=== PATIENT | male | born 1955 | race Caucasian/White ===

== ENCOUNTER 2018-08-14 09:20 | Observation (INO) | payer MEDICARE, OTHER ==
[~2018-08-14] VITALS: Ht 177.8 cm; Wt 76.2 kg
[~2018-08-14 09:20] MED LIST: AUGM4005L GT; CLON.1 PO; LEVO100T12 PO; OMEP20TA25 PO
[2018-08-14] MEDS ORDERED: ONDANSETRON HCL 4 MG/2 ML VIAL ONE (09:45)
[2018-08-14] MEDS ORDERED: SODIUM CHLORIDE 0.9% 500ML 500 ML IV ONE (09:46)
[2018-08-14 11:34] LABS: MAN.DIFF COMMENT-IMPRESSION MANUAL DIFFERENTIAL; MONOCYTES % (MANUAL) 5 % (2-9)
[2018-08-14 11:35] LABS: PLATELET MORPHOLOGY COMMENT SLIGHTLY DECREASED
[2018-08-14 11:54] LABS: BASOPHILS % (AUTO) 0.8 % (0.0-5.0); EOSINOPHILS % (AUTO) 0.6 % (0.0-8.0); HEMATOCRIT 33.9 % (42-54); LYMPHOCYTES % (AUTO) 12.5 % (21.0-51.0); MEAN CORPUSCULAR HEMOGLOBIN 34.3 pg (27.0-33.0); MEAN CORPUSCULAR HGB CONC 34.6 g/dL (32.0-36.0); MEAN CORPUSCULAR VOLUME 98.9 fL (79-99); MONOCYTES % (AUTO) 11.4 % (3.0-13.0); NEUTROPHILS % (AUTO) 74.7 % (40.0-77.0); NUCLEATED RED BLOOD CELLS 0.1 % (0.0-0.19); PLATELET COUNT (AUTO) 232 K/uL (130-400); RED BLOOD CELL COUNT(AUTO) 3.43 MIL/uL (4.50-6.20); RED CELL DISTRIBUTION WIDTH 15.4 % (11.0-15.5); WHITE BLOOD COUNT (AUTO) 6.5 K/uL (4.8-10.8)
[2018-08-14 12:06] LABS: POTASSIUM 4.8 mmol/L (3.5-5.1)
[2018-08-14 12:10] LABS: ALBUMIN 3.9 g/dL (3.5-5.0); BILIRUBIN,TOTAL 0.9 mg/dL (0.2-1.0); TOTAL PROTEIN, SERUM 7.4 g/dL (6.0-8.3)
[2018-08-14 12:21] LABS: B-TYPE NATRIURETIC PEPTIDE 125 pg/mL (0-100)
[2018-08-14 12:27] LABS: HEMATOCRIT 34.7 % (42-54)
[2018-08-14] MEDS ORDERED: LEVO100T12 PO (13:08)
[2018-08-14] MEDS ORDERED: PRAV10TA39 PO (13:09)
[2018-08-14] MEDS ORDERED: LISI10TA7 PO (13:09)
[2018-08-14] MEDS ORDERED: ACETAMINOPHEN 325 MG TAB PO PRN (13:45)
[2018-08-14] MEDS ORDERED: LIDOCAINE HCL-MPF 1% 2ML VIAL IVP PRN (13:45)
[2018-08-14] MEDS ORDERED: POTASSIUM CHLORIDE 20 MEQ ERTAB PO PRN (13:45)
[2018-08-14] MEDS ORDERED: LACTULOSE 20 GM/30 ML UDCUP PO PRN (13:45)
[2018-08-14] MEDS ORDERED: POTASSIUM CHLORIDE 20MEQ/100ML 100 ML IV PRN (13:45)
[2018-08-14] MEDS ORDERED: MAG HYDROX/AL HYDROX/SIMETH ES 30 ML SUSP UDCUP PO PRN (13:45)
[2018-08-14] MEDS ORDERED: ONDANSETRON HCL 4 MG/2 ML VIAL IV PRN (13:45)
[2018-08-14] MEDS ORDERED: POTASSIUM CHLORIDE 10% ELIXIR 20 MEQ/15 ML UDCUP PO PRN (13:45)
[2018-08-14] MEDS ORDERED: SODIUM CHLORIDE 0.9% 1000ML 1,000 ML IV ONE (13:47)
[2018-08-14 14:57] LABS: APPEARANCE,URINE Clear (CLEAR); BILIRUBIN,URINE Negative (NEGATIVE); COLOR,URINE Yellow (YELLOW); GLUCOSE, URINE (UA) Negative (NEGATIVE); KETONES,URINE 40 mg/dL (NEGATIVE); LEUKOCYTE ESTERASE ,URINE Negative (NEGATIVE); NITRATE,URINE Negative (NEGATIVE); OCCULT BLOOD,URINE Negative (NEGATIVE); PH,URINE 6.5 (5.0-8.0); PROTEIN,URINE Negative (NEGATIVE)
[2018-08-14 15:42] LABS: AMPHET/METH SCREEN,URINE NEGATIVE (NEGATIVE); BARBITURATE SCREEN, URINE NEGATIVE (NEGATIVE); BENZODIAZEPINES SCREEN,URINE NEGATIVE (NEGATIVE); CANNABINOID SCREEN,URINE NEGATIVE (NEGATIVE); COCAINE SCREEN,URINE NEGATIVE (NEGATIVE); OPIATE SCREEN,URINE NEGATIVE (NEGATIVE); PHENCYCLIDINE SCREEN,URINE NEGATIVE (NEGATIVE)
[2018-08-14 18:27] VITALS: BP 165/86
[2018-08-14 19:05] VITALS: BP 129/85
[2018-08-14] MEDS ORDERED: CEFTRIAXONE SODIUM 1 GM IVP SCH (21:00)
[2018-08-14 23:08] VITALS: BP 168/95
[2018-08-14] MEDS: SODIUM CHLORIDE 0.9% 1000ML 1,000 ML IV SCH (23:47)
[2018-08-14] MEDS: ACETAMINOPHEN 325 MG TAB PO PRN (23:49)
[2018-08-15 03:16] VITALS: BP 171/91
[2018-08-15 04:31] LABS: HEMATOCRIT 29.5 % (42-54); MEAN CORPUSCULAR HEMOGLOBIN 35.1 pg (27.0-33.0); MEAN CORPUSCULAR HGB CONC 35.3 g/dL (32.0-36.0); MEAN CORPUSCULAR VOLUME 99.3 fL (79-99); NUCLEATED RED BLOOD CELLS 0.1 % (0.0-0.19); PLATELET COUNT (AUTO) 215 K/uL (130-400); RED BLOOD CELL COUNT(AUTO) 2.97 MIL/uL (4.50-6.20); RED CELL DISTRIBUTION WIDTH 14.7 % (11.0-15.5); WHITE BLOOD COUNT (AUTO) 6.9 K/uL (4.8-10.8)
[2018-08-15 04:46] LABS: CREATININE 0.7 mg/dL (0.5-1.5); POTASSIUM 5.5 mmol/L (3.5-5.1)
[2018-08-15] MEDS ORDERED: LEVOTHYROXINE 100 MCG TABLET ONE (06:23)
[2018-08-15] MEDS: LEVOTHYROXINE 100 MCG TABLET PO SCH (06:35)
[2018-08-15] MEDS: SODIUM CHLORIDE 0.9% 1000ML 1,000 ML IV SCH (06:35)
[2018-08-15 07:15] VITALS: BP 126/55
[2018-08-15] MEDS ORDERED: AMLO5TAB7 PO (08:14)
[2018-08-15] MEDS ORDERED: CEPH500C2 PO (08:14)
[2018-08-15] MEDS: AMLODIPINE BESYLATE 5 MG TAB PO SCH (09:59)
[2018-08-15] MEDS: CEPHALEXIN 500 MG CAPSULE PO SCH ×3 (09:59→22:10)
[2018-08-15] MEDS: PANTOPRAZOLE SODIUM 40 MG TABLET.DR PO SCH (09:59)
[2018-08-15 11:53] VITALS: BP 145/86
[2018-08-15 16:00] VITALS: BP 136/78
[2018-08-15 19:00] VITALS: BP 129/95
[2018-08-15] MEDS: ACETAMINOPHEN 325 MG TAB PO PRN (22:12)
[2018-08-16] VITALS: BP 140/80
[2018-08-16 04:00] VITALS: BP 136/94
[2018-08-16] MEDS: LEVOTHYROXINE 100 MCG TABLET PO SCH (06:45)
[2018-08-16 08:00] VITALS: BP 142/88
[2018-08-16] MEDS: PANTOPRAZOLE SODIUM 40 MG TABLET.DR PO SCH (10:17)
[2018-08-16] MEDS: AMLODIPINE BESYLATE 5 MG TAB PO SCH (10:17)
[2018-08-16] MEDS: CEPHALEXIN 500 MG CAPSULE PO SCH (10:17)
[2018-08-16 12:00] VITALS: BP 142/88
== END 2018-08-16 13:45 | disposition home or self-care (01) ==
LOC: EDH 09:20 → EDHIP 13:20 → 3DH 18:10
PROVIDERS: ADMIT Internal Medicine; ATTEND Internal Medicine
DX: E86.0 Dehydration (principal); L03.211 Cellulitis of face; E87.5 Hyperkalemia; Z87.891 Personal history of nicotine dependence; E78.2 Mixed hyperlipidemia; J30.9 Allergic rhinitis, unspecified; K21.9 Gastro-esophageal reflux disease without esophagitis; J44.9 Chronic obstructive pulmonary disease, unspecified; I12.9 Hypertensive chronic kidney disease with stage 1 through stage 4 chronic kidney disease, or unspecified chronic kidney disease; N18.2 Chronic kidney disease, stage 2 (mild); C10.9 Malignant neoplasm of oropharynx, unspecified; C85.90 Non-Hodgkin lymphoma, unspecified, unspecified site; D53.9 Nutritional anemia, unspecified; D72.819 Decreased white blood cell count, unspecified; E03.9 Hypothyroidism, unspecified; G62.9 Polyneuropathy, unspecified; H54.8 Legal blindness, as defined in USA; I70.0 Atherosclerosis of aorta; F41.1 Generalized anxiety disorder; T45.1X5A Adverse effect of antineoplastic and immunosuppressive drugs, initial encounter; Y84.2 Radiological procedure and radiotherapy as the cause of abnormal reaction of the patient, or of later complication, without mention of misadventure at the time of the procedure; F32.1 Major depressive disorder, single episode, moderate; R13.10 Dysphagia, unspecified; Z85.818 Personal history of malignant neoplasm of other sites of lip, oral cavity, and pharynx; Z94.7 Corneal transplant status; Z98.42 Cataract extraction status, left eye; Z80.3 Family history of malignant neoplasm of breast; Z82.49 Family history of ischemic heart disease and other diseases of the circulatory system; Z83.3 Family history of diabetes mellitus; Z79.899 Other long term (current) drug therapy
CPT/HCPCS: 36415; 71045; 80048; 80053; 80305; 81003; 82550; 83880; 84443; 84484; 85014; 85018; 85025; 85027; 86850; 86900; 86901; 87804 ×2; 93005; 96361 ×2; 96374; 97116 ×2; 97161; 99285; A4218; G0378 ×48; G8978; G8979; G8980 ×2; G8981; G8982; G8983 ×2; J0696; J2405; J7030; J7040; 86922

== ENCOUNTER → 2018-11-27 | Outpatient (CLI) | payer OTHER ==
[~2018-11-27] MED LIST changes: +AMLO5TAB9 PO; -AUGM4005L GT; +CEPH500C2 PO; -CLON.1 PO; -OMEP20TA25 PO; +PRAV10TA39 PO
== END | disposition home or self-care (01) ==
LOC: RAH 11:31
PROVIDERS: ATTEND Internal Medicine
DX: M19.071 Primary osteoarthritis, right ankle and foot (principal); M77.31 Calcaneal spur, right foot
CPT/HCPCS: 73610; 73630

== ENCOUNTER 2019-11-23 11:39 | Emergency (ER) | payer OTHER ==
[2019-11-23 12:28] LABS: BASOPHILS % (AUTO) 1.2 % (0.0-5.0); EOSINOPHILS % (AUTO) 3.7 % (0.0-8.0); HEMATOCRIT 32.1 % (42-54); LYMPHOCYTES % (AUTO) 25.3 % (21.0-51.0); MEAN CORPUSCULAR HEMOGLOBIN 29.7 pg (27.0-33.0); MEAN CORPUSCULAR HGB CONC 33.3 g/dL (32.0-36.0); MEAN CORPUSCULAR VOLUME 89.2 fL (79-99); MONOCYTES % (AUTO) 9.7 % (3.0-13.0); NEUTROPHILS % (AUTO) 59.6 % (40.0-77.0); PLATELET COUNT (AUTO) 355 K/uL (130-400); WHITE BLOOD COUNT (AUTO) 5.7 K/uL (4.8-10.8)
[2019-11-23 12:41] LABS: CREATININE 0.9 mg/dL (0.5-1.5); POTASSIUM 4.4 mmol/L (3.5-5.1)
[2019-11-23 12:42] LABS: INR 0.99 (0.85-1.15); PROTHROMBIN TIME 10.4 SEC (9.6-11.6)
[2019-11-23 12:49] LABS: ALBUMIN 3.8 g/dL (3.5-5.0); BILIRUBIN,TOTAL 0.2 mg/dL (0.2-1.0); TOTAL PROTEIN, SERUM 8.1 g/dL (6.0-8.3)
[2019-11-23] MEDS ORDERED: KETOROLAC TROMETHAMINE 15MG/ML ONE (13:41)
[2019-11-23] MEDS ORDERED: METHYLPREDNISOLONE SOD SUCC 125MG/2ML VIAL ONE (13:41)
== END 2019-11-23 14:28 | disposition home or self-care (01) ==
LOC: EDH 11:39
DX: M54.5 Low back pain (principal); E87.1 Hypo-osmolality and hyponatremia; I10 Essential (primary) hypertension; Z87.891 Personal history of nicotine dependence; Z88.6 Allergy status to analgesic agent
CPT/HCPCS: 36415; 71045; 72100; 80053; 82550; 84484; 85025; 85610; 85730; 93005; 96374; 96375; 99285; J1885; J2930

== ENCOUNTER → 2019-12-14 | Outpatient (CLI) | payer OTHER | END | disposition home or self-care (01) | LOC: RAH 16:04 | PROVIDERS: ATTEND Internal Medicine | DX: R91.8 Other nonspecific abnormal finding of lung field (principal) | CPT/HCPCS: 71046 ==